=== PATIENT | female | born 1965 | race Caucasian/White ===

== ENCOUNTER 2017-12-18 12:34 | Emergency (ER) | payer MEDICAID ==
[~2017-12-18] VITALS: Ht 167.6 cm; Wt 63.5 kg
[2017-12-18] MEDS ORDERED: LAMICTAL200 MG PO (14:13)
[2017-12-18] MEDS ORDERED: AMITRIPTYLINE100 MG PO (14:13)
[2017-12-18] MEDS ORDERED: MOBIC15 MG PO (14:14)
[2017-12-18] MEDS ORDERED: CYCLOBENZAPRINE10 MG PO (14:14)
== END 2017-12-18 18:18 | disposition home or self-care (01) ==
LOC: ED 12:34
DX: T74.21XA Adult sexual abuse, confirmed, initial encounter (principal); S30.814A Abrasion of vagina and vulva, initial encounter; Z88.5 Allergy status to narcotic agent; Z88.8 Allergy status to other drugs, medicaments and biological substances; Z79.899 Other long term (current) drug therapy; X58.XXXA Exposure to other specified factors, initial encounter
CPT/HCPCS: 36415; 80069; 80076; 82977; 83615; 85025; 86703; 86706; 86707; 99284